=== PATIENT | male | born 1980 | race Caucasian/White ===

== ENCOUNTER 2020-02-05 02:32 | Emergency (ER) | payer OTHER, SELFPAY ==
[2020-02-05] MEDS ORDERED: LIDOCAINE 1% MPF 30 ML VIAL ONE (03:11)
--- NOTE | 2020-02-05 03:31 | ER ---
Nurse's Notes [facility] Name: Enio Taylor Age: 39 yrs Sex: Male : 1980 Arrival Date: 02/05/2020 Time: 02:33 Bed 16 Private MD: Diagnosis: Fish hook enbedded in left thumb ( Removed ) Presentation: 02/04 02:42 Chief complaint: Patient states: PT was adjusting his side mirror when his left thumb wh got caught on a fish hook. Pt was unaware fish hook was there. Coronavirus screen: Client denies travel out of the [place] in the last 14 days. At this time, the client does not indicate any symptoms associated with coronavirus-19. Ebola Screen: Patient negative for fever greater than or equal to 101.5 degrees Fahrenheit, and additional compatible Ebola Virus Disease symptoms Patient denies exposure to infectious person. Initial Sepsis Screen: Does the patient meet any 2 criteria? No. Patient's initial sepsis screen is negative. Does the patient have a suspected source of infection? Yes: Skin breakdown/wound. Risk Assessment: Do you want to hurt yourself or someone else? Patient reports no desire to harm self or others. Onset of symptoms was February 05, 2020. 02:42 Method Of Arrival: Ambulatory 02:42 Acuity: MITA 4 Historical: - Allergies: 02:44 Morphine; - Home Meds: 02:44 None [Active]; - PMHx: 02:44 None; - PSHx: 02:44 Hip Surgery; - Immunization history:: Adult Immunizations up to date, Last tetanus immunization: up to date. - Social history:: Smoking status: Patient reports the use of cigarette tobacco products, denies chronic smoking, but will smoke occasionally. Screenin:46 Abuse screen: Denies threats or abuse. Denies injuries from another. Nutritional screening: No deficits noted. Tuberculosis screening: No symptoms or risk factors identified. Fall Risk None identified. Assessment: 02:44 General: Appears in no apparent distress. Behavior is calm, cooperative, appropriate for age. Pain: Complains of pain in left thumb Pain currently is 5 out of 10 on a pain scale. Neuro: Level of Consciousness is awake, alert, obeys commands, Oriented to person, place, time, situation, Appropriate for age. Cardiovascular: Capillary refill < 3 seconds. Respiratory: Airway is patent Respiratory effort is even, unlabored, Respiratory pattern is regular, symmetrical. GI: Abdomen is flat, non-distended. : No signs and/or symptoms were reported regarding the genitourinary system. EENT: No signs and/or symptoms were reported regarding the EENT system. Derm: Skin is intact, is healthy with good turgor, Skin is pink, warm \T\ dry. normal. Musculoskeletal: Circulation, motion, and sensation intact. Injury Description: Foreign body is located left thumb is fish hook. Vital Signs: 02:42 BP 129 / 85; Pulse 78; Resp 18; Temp 98.4; Pulse Ox 100% ; Weight 104.33 kg; Height 6 wh ft. 1 in. (185.42 cm); Pain 5/10; 03:44 BP 105 / 95; Pulse 85; Resp 18; Pulse Ox 98% on R/A; wh 02:42 Body Mass Index 30.34 (104.33 kg, 185.42 cm) ED Course: 02:33 Patient arrived in ED. cl3 02:42 Villa Romero is Primary Nurse. 02:44 Triage completed. wh 02:46 Patient has correct armband on for positive identification. Bed in low position. Call light in reach. Side rails up X 1. Pulse ox on. NIBP on. 02:46 Arm band placed on right wrist. wh 02:55 Son Forte MD is Attending Physician. pkl 03:15 Assist provider with foreign body removal of a fish hook from left thumb using pliers Set up for procedure. Performed by Son Forte MD Dressed with 4X4s, Patient tolerated well. Patient did not have IV access during this emergency room visit. Administered Medications: 03:31 Drug: Motrin 600 mg Route: PO; 03:44 Follow up: Response: No adverse reaction 03:36 Drug: KeFLEX 500 mg Route: PO; 03:44 Follow up: Response: No adverse reaction Outcome: 03:30 Discharge ordered by . pkl 03:44 Discharged to home ambulatory. 03:44 Condition: stable 03:44 Discharge instructions given to patient, Instructed on discharge instructions, follow up and referral plans. medication usage, wound care, Demonstrated understanding of instructions, follow-up care, medications, wound care, Prescriptions given X 1. 03:44 Patient left the ED. Signatures: Son Fotre MD MD pkl [place], Winsy wh Lewis, Charde cl3
--- NOTE | 2020-02-05 03:31 | EDPHYS ---
Physician Documentation [facility] Name: Enio Taylor Age: 39 yrs Sex: Male : 1980 Arrival Date: 02/05/2020 Time: 02:33 Bed 16 Private MD: ED Physician Son Forte HPI: 02/04 03:20 This 39 yrs old Male presents to ER via Ambulatory with complaints of Fish pkl Hook In Finger. 03:20 The patient or guardian reports Fish hook embedded in his left thumb. Onset: The pkl symptoms/episode began/occurred just prior to arrival. Historical: - Allergies: 02:44 Morphine; wh - Home Meds: 02:44 None [Active]; wh - PMHx: 02:44 None; - PSHx: 02:44 Hip Surgery; - Immunization history:: Adult Immunizations up to date, Last tetanus immunization: up to date. - Social history:: Smoking status: Patient reports the use of cigarette tobacco products, denies chronic smoking, but will smoke occasionally. ROS: 03:20 Eyes: Negative for injury, pain, redness, and discharge, ENT: Negative for injury, pkl pain, and discharge, Neck: Negative for injury, pain, and swelling, Cardiovascular: Negative for chest pain, palpitations, and edema, Respiratory: Negative for shortness of breath, cough, wheezing, and pleuritic chest pain, Abdomen/GI: Negative for abdominal pain, nausea, vomiting, diarrhea, and constipation, Back: Negative for injury and pain, : Negative for injury, bleeding, discharge, and swelling, Skin: Negative for injury, rash, and discoloration, Neuro: Negative for headache, weakness, numbness, tingling, and seizure. 03:20 MS/extremity: Positive for Fish hook embedded in left thumb. Exam: 03:20 Head/Face: Normocephalic, atraumatic. Eyes: Pupils equal round and reactive to light, pkl extra-ocular motions intact. Lids and lashes normal. Conjunctiva and sclera are non-icteric and not injected. Cornea within normal limits. Periorbital areas with no swelling, redness, or edema. ENT: Nares patent. No nasal discharge, no septal abnormalities noted. Tympanic membranes are normal and external auditory canals are clear. Oropharynx with no redness, swelling, or masses, exudates, or evidence of obstruction, uvula midline. Mucous membranes moist. Neck: Trachea midline, no thyromegaly or masses palpated, and no cervical lymphadenopathy. Supple, full range of motion without nuchal rigidity, or vertebral point tenderness. No Meningismus. Chest/axilla: Normal chest wall appearance and motion. Nontender with no deformity. No lesions are appreciated. Cardiovascular: Regular rate and rhythm with a normal S1 and S2. No gallops, murmurs, or rubs. Normal PMI, no JVD. No pulse deficits. Respiratory: Lungs have equal breath sounds bilaterally, clear to auscultation and percussion. No rales, rhonchi or wheezes noted. No increased work of breathing, no retractions or nasal flaring. Abdomen/GI: Soft, non-tender, with normal bowel sounds. No distension or tympany. No guarding or rebound. No evidence of tenderness throughout. Back: No spinal tenderness. No costovertebral tenderness. Full range of motion. Skin: Warm, dry with normal turgor. Normal color with no rashes, no lesions, and no evidence of cellulitis. Neuro: Awake and alert, GCS 15, oriented to person, place, time, and situation. Cranial nerves II-XII grossly intact. Motor strength 5/5 in all extremities. Sensory grossly intact. Cerebellar exam normal. Normal gait. 03:20 Musculoskeletal/extremity: Extremities: grossly normal except: noted in the Fish hook embedded in left thumb: Vital Signs: 02:42 BP 129 / 85; Pulse 78; Resp 18; Temp 98.4; Pulse Ox 100% ; Weight 104.33 kg; Height 6 wh ft. 1 in. (185.42 cm); Pain 5/10; 03:44 BP 105 / 95; Pulse 85; Resp 18; Pulse Ox 98% on R/A; wh 02:42 Body Mass Index 30.34 (104.33 kg, 185.42 cm) Procedures: 03:20 Local anesthesia ( 3 cc 1 % lidocaine ). Fish hook removed. pkl MDM: 02:55 Patient medically screened. pkl 03:20 Data reviewed: vital signs, nurses notes. pkl Administered Medications: 03:31 Drug: Motrin 600 mg Route: PO; 03:44 Follow up: Response: No adverse reaction 03:36 Drug: KeFLEX 500 mg Route: PO; 03:44 Follow up: Response: No adverse reaction Disposition: 02/05/20 03:30 Discharged to Home. Impression: Fish hook enbedded in left thumb ( Removed ). - Condition is Stable. - Prescriptions for Keflex 500 mg Oral Capsule - take 1 capsule by ORAL route every 6 hours for 7 days; 28 capsule. - Medication Reconciliation Form, Thank You Letter, Antibiotic Education, Prescription Opioid Use form. - Follow up: Private Physician; When: 2 - 3 days; Reason: Re-evaluation by your physician. - Problem is new. - Symptoms have improved. Signatures: Son Forte MD MD pkl Villa Romero Corrections: (The following items were deleted from the chart) 03:44 03:30 02/05/2020 03:30 Discharged to Home. Impression: Fish hook enbedded in left thumb ( Removed ). Condition is Stable. Forms are Medication Reconciliation Form, Thank You Letter, Antibiotic Education, Prescription Opioid Use. Follow up: Private Physician; When: 2 - 3 days; Reason: Re-evaluation by your physician. Problem is new. Symptoms have improved. pkl
[2020-02-05] MEDS ORDERED: IBUPROFEN 400 MG TAB ONE (03:35)
[2020-02-05] MEDS ORDERED: IBUPROFEN 200 MG TAB PO ONE (03:35)
[2020-02-05] MEDS ORDERED: CEPHALEXIN 250 MG CAP ONE (03:46)
[2020-02-05 15:42] VITALS: TEMP 98.4
[2020-02-05 15:44] VITALS: BP 105/95; O2SAT 98
== END 2020-02-05 03:44 | disposition home or self-care (01) ==
LOC: ER 02:32
DX: S61.042A Puncture wound with foreign body of left thumb without damage to nail, initial encounter (principal); F17.210 Nicotine dependence, cigarettes, uncomplicated; Z88.5 Allergy status to narcotic agent
CPT/HCPCS: 99284

== ENCOUNTER 2024-06-15 08:37 | Emergency (ER) | payer SELFPAY ==
[2024-06-15 09:23] LABS: Sqamous Epithelial <5 /HPF (None Seen); Urine Bacteria <20 /HPF (<20); Urine Bilirubin NEGATIVE (Negative); Urine Blood 2+ (Negative); Urine Clarity Extremely Turbid (Clear); Urine Color Yellow (Yellow); Urine Culture Reflex Order REFLEXED; Urine Glucose NEGATIVE (Negative); Urine Ketones NEGATIVE (Negative); Urine Microscopic Reflex YN ORDER UMIC; Urine Mucus 2+ /HPF (None Seen); Urine Nitrite NEGATIVE (Negative); Urine Protein 1+ (Negative); Urine RBC >50 /HPF (None Seen); Urine Urobilinogen 1+ (Normal); Urine WBC >50 /HPF (<5); Urine WBC Clump Occasional /HPF (None Seen); Urine Yeast (Budding) Trace /HPF (None Seen)
--- NOTE | 2024-06-15 09:41 | RAD REPORT ---
EXAMINATION: CT ABDOMEN AND PELVIS WITHOUT CONTRAST CLINICAL INDICATION: back pain, dysuria TECHNIQUE: CT abdomen and pelvis was performed, without IV contrast, as per department protocol. Axia l, sagittal and coronal reconstructions were obtained. One or more of the following dose reduction techniques were used: Automated exposure control, adjustment of the mA and kV according to the patien t size, and iterative reconstruction. Unless otherwise specified, incidental findings do not require dedicated imaging follow-up. COMPARISON: No prior exam. FINDINGS: The lack of intravenous contrast limits the sensitivity of this exam for evaluation of solid visceral organs, vascular structures, and retroperitoneum. LOWER CHEST: The visualized lung bases are clear. LIVER:Normal in size and contour. No focal lesion. Grossly unremarkable gallbladder. SPLEEN: Normal size. No focal lesion. PANCREAS: No mass, ductal dilation, or aj-pancreatic fluid. ADRENALS: Normal; no mass. KIDNEYS AND URETERS: Normal size and contour. Punctate nonobstructing right renal calculus. No hydron ephrosis. URINARY BLADDER: Normal contour. GASTROINTESTINAL TRACT: No evidence of bowel obstruction, significant free fluid, free air or abscess . APPENDIX: Normal appendix. LYMPH NODES: No lymphadenopathy. MUSCULOSKELETAL: Mild lower lumbar disc bulging is present. Right total hip arthroplasty. ADDITIONAL FINDINGS: Small fat-containing hernia. IMPRESSION: No acute or concerning abnormalities in the abdomen or pelvis, with evaluation limited by lack of IV contrast.
[2024-06-15 09:48] LABS: Absolute Eosinophils 0.1 K/uL (0-0.5); Absolute Lymphocytes (CBC) 0.9 K/uL (0.7-4.9); Absolute Monocytes 1.5 K/uL (0.1-1.3); Absolute Neutrophil 21.6 K/uL (1.8-8.0); Basophils % 0.2 % (0-1.3); Eosinophils % 0.4 % (0-4.4); Hematocrit 49.1 % (39.6-49.0); Hemoglobin 16.4 g/dL (13.6-17.9); Lymphocytes % 3.7 % (15.3-44.8); MCH 30.9 pg (27.0-35.0); MCHC 33.3 g/dL (32.0-36.0); MCV 92.6 fL (80-100); MPV 8.4 fL (7.6-11.3); Monocytes % 6.2 % (3.3-12.3); Neutrophils % 89.5 % (41.7-73.7); Platelets 374 thou/uL (152-406); Red Cell Distribution Width 12.4 % (12.1-15.2)
[2024-06-15] MEDS ORDERED: HYDROCODONE/APAP 10/325 TAB ONE (09:58)
[2024-06-15] MEDS ORDERED: levoFLOXacin 250 MG TAB ONE (09:58)
[2024-06-15 10:02] LABS: Albumin 3.5 g/dL (3.4-5.0); Anion Gap 8.1 mEq/L (5.0-15.0); Bilirubin Total 1.3 mg/dL (0.2-1.0); Globulin 3.6 g/dL (2.3-3.5); Potassium 4.1 mEq/L (3.5-5.1); Protein, Total 7.1 g/dL (6.4-8.2)
--- NOTE | 2024-06-15 10:09 | RAD REPORT ---
EXAMINATION: ULTRASOUND DUPLEX OF SCROTUM AND TESTICLES CLINICAL INDICATION: Male, 43 years, testicular pain, dysuria TECHNIQUE: Duplex scan of the scrotal contents was performed including real-time color and spectral D oppler ultrasonography with arterial inflow and venous outflow. COMPARISON: No prior exam. FINDINGS: RIGHT TESTICLE AND EPIDIDYMIS: The right testicle is normal in size, measuring 4.0 x 3.3 x 1.7 cm. Normal, homogeneous echotexture with no focal lesion seen. The right epididymis is normal. Color Doppler flow in the right testicle is normal. LEFT TESTICLE AND EPIDIDYMIS: The left testicle is normal in size, measuring 4.1 x 3.3 x 1.8 cm. Normal, homogeneous echotexture with no focal lesion seen. The left epididymis is normal. Color Doppler flow in the left testicle is normal. ADDITIONAL FINDINGS: None. IMPRESSION: No acute or significant abnormalities.
[2024-06-15 10:17] LABS: Blood Morphology Comment NOT SEEN (NOT SEEN); Platelet Estimate ADEQ; White Blood Cell Scan OK (OK)
--- NOTE | 2024-06-15 10:26 | EDPHYS ---
Physician Documentation [facility] Name: Enio Taylor Age: 43 yrs Sex: Male : 1980 Arrival Date: 06/15/2024 Time: 08:37 Bed DX1 Private MD: ED Physician Ronald Stahl HPI: 06/15 10:22 This 43 yrs old Male presents to ER via Ambulatory with complaints of Low Back Pain - rn Dark smelly urine. 10:22 The patient presents with urinary symptoms, dysuria, urinary frequency. Onset: The rn symptoms/episode began/occurred 2 day(s) ago. Modifying factors: The symptoms are alleviated by nothing, the symptoms are aggravated by urinating. Severity of symptoms: At their worst the symptoms were moderate, in the emergency department the symptoms are unchanged. The patient has not experienced similar symptoms in the past. Patient reports 2 or 3 days of dysuria and increased urinary frequency. Is able to empty. No history of UTI. No history of kidney stones. No fever but reports chills and malaise. No vomiting. Denies abdominal pain. Reports mild testicular discomfort bilaterally. No hematuria.. Historical: - Allergies: 09:05 Morphine; ss - Home Meds: 09:05 None [Active]; ss - PMHx: 09:05 None; ss - PSHx: 09:05 R total hip; ss - Immunization history:: Client reports having NOT received the Covid vaccine. - Infectious Disease History:: Denies. - Social history:: Smoking status: Reported history of juuling and/or vaping. - Family history:: not pertinent. - Hospitalizations: : No recent hospitalization is reported. ROS: 10:22 Constitutional: Negative for fever, positive for chills Cardiovascular: Negative for rn chest pain, palpitations, and edema, Respiratory: Negative for shortness of breath, cough, wheezing, and pleuritic chest pain, Abdomen/GI: Negative for abdominal pain, nausea, vomiting, diarrhea, and constipation, Back: Positive for low back pain : Positive for dysuria and increased urinary frequency, negative for hematuria Exam: 10:22 Constitutional: This is a well developed, well nourished patient who is awake, alert, rn and in no acute distress. Cardiovascular: Regular rate and rhythm. No pulse deficits. Respiratory: No increased work of breathing, no retractions or nasal flaring. Abdomen/GI: Soft, non-tender MS/ Extremity: Pulses equal, no cyanosis. Neuro: Awake and alert, GCS 15 Vital Signs: 09:05 BP 116 / 66; Pulse 95; Resp 16; Temp 97.9(O); Pulse Ox 99% on R/A; Weight 114.31 kg; ss Height 6 ft. 1 in. ; Pain 8/10; 09:05 Body Mass Index 33.25 (114.31 kg, 185.42 cm) ss 09:05 Pain Scale: Adult ss MDM: 08:42 Medical Screening Exam initiated rn 10:24 Differential diagnosis: UTI, prostatitis, urethritis, Epididymitis, pyelonephritis. rn Data reviewed: vital signs, nurses notes, lab test result(s), radiologic studies, CT scan, ultrasound. Consideration of Admission/Observation Escalation of care including admission/observation considered. Admission considered along with septic workup considered but patient states does not want to stay in the hospital and has stuff to do. Prefers to be discharged with oral antibiotics and will return if anything worsens.. Counseling: I had a detailed discussion with the patient and/or guardian regarding the historical points, exam findings, and any diagnostic results supporting the discharge/admit diagnosis, lab results, radiology results, the need for outpatient follow up, to return to the emergency department if symptoms worsen or persist or if there are any questions or concerns that arise at home. Response to treatment: the patient's symptoms have mildly improved after treatment, and as a result, I will discharge patient. 06/15 08:42 Order name: Urinalysis w/ reflexes; Complete Time: 09:47 rn 06/15 09:14 Order name: CBC with Diff rn 06/15 09:14 Order name: CMP; Complete Time: 10:11 rn 06/15 09:26 Order name: Urine Culture EDDC 06/15 10:17 Order name: CBC Smear Scan EDDC 06/15 09:14 Order name: US Scrotum Testicles; Complete Time: 10:11 rn 06/15 09:14 Order name: CT Stone Protocol; Complete Time: 09:47 rn 06/15 09:14 Order name: IV Saline Lock; Complete Time: 09:39 rn 06/15 09:14 Order name: Labs collected and sent; Complete Time: 09:40 rn Administered Medications: 10:07 Drug: Sheldon PO 10 mg-325 mg 1 tabs PO once Route: PO; ld1 10:07 Drug: LevOfloxacin PO 500 mg PO once Route: PO; ld1 Disposition Summary: 06/15/24 10:25 Discharge Ordered Notes: Location: Home rn Problem: new rn Symptoms: have improved rn Condition: Stable rn Diagnosis - UTI/ Urinary tract infection, site not specified rn Followup: rn - With: Private Physician - When: As needed - Reason: Recheck today's complaints, Re-evaluation by your physician Discharge Instructions: - Discharge Summary Sheet rn - Urinary Tract Infection, Adult rn Forms: - Medication Reconciliation Form rn - Antibiotic garnetter - Prescription Opioid Use rn - Patient Portal Instructions rn - Leadership Thank You Letter rn Prescriptions: - ondansetron 4 mg Oral Tablet,disintegrating - take 1 tablet ORAL route every 8 hours As needed; 12 tablet; Refills: 0, rn Product Selection Permitted - Tramadol 50 mg Oral Tablet - take 1 tablet ORAL route every 8 hours as needed; 12 tablet; Refills: 0, rn Product Selection Permitted - levofloxacin 500 mg Oral tablet - take 1 tablet ORAL route once daily for 10 days; 10 tablet; Refills: 0, Product rn Selection Permitted Signatures: Dispatcher [employer] EDMS Ronald Stahl MD MD rn Blanchard, Shelby, RN RN ss Rosalee Fermin RN RN ld1 Corrections: (The following items were deleted from the chart) 09:15 09:15 Scrotum Testicles+US.RAD.BRZ ordered. EDMS EDMS 09:15 09:15 Stone Protocol+CT.RAD.BRZ ordered. EDMS EDMS
--- NOTE | 2024-06-15 10:26 | ER ---
Nurse's Notes [facility] Name: Enio Taylor Age: 43 yrs Sex: Male : 1980 Arrival Date: 06/15/2024 Time: 08:37 Bed DX1 Private MD: Diagnosis: UTI/ Urinary tract infection, site not specified Presentation: 06/15 09:05 Chief complaint: Patient states: burning with urination and frequency that began 3-4 ss days ago. Coronavirus screen: Client denies travel out of the [place] in the last 14 days. Ebola Screen: Patient denies exposure to infectious person. Patient denies travel to an Ebola-affected area in the 21 days before illness onset. Initial Sepsis Screen: Does the patient meet any 2 criteria? No. Patient's initial sepsis screen is negative. Does the patient have a suspected source of infection? No. Patient's initial sepsis screen is negative. Risk Assessment: Do you want to hurt yourself or someone else? Patient reports no desire to harm self or others. Onset of symptoms was June 11, 2024. 09:05 Method Of Arrival: Ambulatory ss 09:05 Acuity: MITA 3 ss Historical: - Allergies: 09:05 Morphine; ss - Home Meds: 09:05 None [Active]; ss - PMHx: 09:05 None; ss - PSHx: 09:05 R total hip; ss - Immunization history:: Client reports having NOT received the Covid vaccine. - Infectious Disease History:: Denies. - Social history:: Smoking status: Reported history of juuling and/or vaping. - Family history:: not pertinent. - Hospitalizations: : No recent hospitalization is reported. Vital Signs: 09:05 BP 116 / 66; Pulse 95; Resp 16; Temp 97.9(O); Pulse Ox 99% on R/A; Weight 114.31 kg; ss Height 6 ft. 1 in. ; Pain 8/10; 09:05 Body Mass Index 33.25 (114.31 kg, 185.42 cm) ss 09:05 Pain Scale: Adult ss ED Course: 08:39 Patient arrived in ED. ra3 08:42 Ronald Stahl MD is Attending Physician. rn 09:05 Arm band placed on right wrist. ss 09:06 Triage completed. ss 09:28 CT Stone Protocol In Process Unspecified. EDMS 09:40 CBC with Diff Sent. cc6 09:40 CMP Sent. cc6 09:40 Inserted saline lock: 20 gauge in left antecubital area, using aseptic technique. Blood cc6 collected. Flushed with 10 mL NS. 09:56 US Scrotum Testicles In Process Unspecified. EDMS 11:03 No provider procedures requiring assistance completed. Patient did not have IV access ss during this emergency room visit. Administered Medications: 10:07 Drug: [employer] PO 10 mg-325 mg 1 tabs PO once Route: PO; ld1 10:07 Drug: LevOfloxacin PO 500 mg PO once Route: PO; ld1 Outcome: 10:25 Discharge ordered by . rn 11:03 Discharged to home ambulatory, ss 11:03 Condition: good 11:03 Discharge instructions given to patient, Instructed on discharge instructions, follow up and referral plans. medication usage, Demonstrated understanding of instructions, follow-up care, medications, Prescriptions given X 3, 11:04 Patient left the ED. ss Signatures: Dispatcher [employer] EDOK Ronald Stahl MD MD rn Blanchard, Shelby, RN RN Rosalee Medina RN RN ld1 Maisha Mcdowell ra3 Antonette Shaikh cc6
[2024-06-15 13:24] VITALS: BP 116/66; TEMP 97.9; O2SAT 99
== END 2024-06-15 11:04 | disposition home or self-care (01) ==
LOC: ER 08:37
DX: N39.0 Urinary tract infection, site not specified (principal)
CPT/HCPCS: 36415; 74176; 76377; 76870; 80053; 81001; 85025; 87077; 87086; 87088; 87186; 99284